=== PATIENT | female | born 1950 | race Hispanic/Latino ===

== ENCOUNTER → 2016-05-11 | Outpatient (CLI) | payer OTHER, MEDICAID | END | disposition home or self-care (01) | LOC: GMA 10:50 | PROVIDERS: ATTEND Nurse Practitioner Family | DX: R19.7 Diarrhea, unspecified (principal) ==

== ENCOUNTER 2016-08-17 15:57 | Emergency (ER) | payer OTHER, MEDICAID ==
[2016-08-17 16:12] VITALS: BP 193/78; TEMP 97.5; O2SAT 96
--- NOTE | 2016-08-17 16:40 | RAD ---
EXAM DESCRIPTION: Chest,2 Views CLINICAL HISTORY: Chest discomfort COMPARISON: August 03, 2015 FINDINGS: Cardiac silhouette shows cardiomegaly with mild vascular congestion. Calcific atherosclerosis noted of the aortic arch. Lung volumes are hyperinflated, compatible with changes of COPD. Hazy linear opacities in the left retrocardiac region and right lung base are likely linear atelectasis; however, early infiltrate cannot be entirely excluded although felt less likely. Blunting of the right costophrenic angle, compatible with small right-sided pleural effusion. No pneumothorax. Dextrocurvature of the thoracic spine. IMPRESSION: 1. Hazy linear opacities in the left retrocardiac region and right lung bases are likely linear atelectasis. Early infiltrate cannot be entirely excluded, although felt less likely. 2. Small right-sided pleural effusion. Electronically signed by: Jonathan Bryson MD 08/17/2016 4:39 PM CDT
[2016-08-17] MEDS ORDERED: MECLIZINE HCL 12.5 MG TAB PO ONE (17:46)
--- NOTE | 2016-08-17 17:48 | ED.PDOC ---
History of Present Illness - General Chief Complaint: Cardiovascular Problem Stated Complaint: chest pressure and dizziness Time Seen by Provider: 08/17/16 16:04 Source: patient Exam Limitations: no limitations - History of Present Illness Initial Comments: the patient is a 66-year-old female presenting to the emergency room secondary to several episodes of vertigo followed by dizziness over the last week. No syncope or near-syncope. No significant falls. Episodes do sound like true vertigo. No trauma. No recent ear infections. Episodes of vertigo last less than a minute. She does have some associated nausea and substernal chest discomfort with the vertigo. Timing/Duration: 1 week, intermittent Severity: moderate Improving Factors: rest Worsening Factors: movement Associated Symptoms: chest pain, malaise, nausea/vomiting Allergies/Adverse Reactions: Allergies Iodine Allergy (Verified 08/17/16 16:12) Metformin Allergy (Verified 08/17/16 16:12) Home Medications: Ambulatory Orders Acetaminophen [Tylenol] 325 mg PO Q4H PRN 12/10/15 Amiodarone HCl 200 mg PO DAILY 12/10/15 Calcium 1,200 mg PO BID 12/10/15 Diltiazem HCl 30 mg PO TID 12/10/15 Furosemide 40 mg PO BID 12/10/15 Gabapentin 300 mg PO BID 12/10/15 Insulin Glargine [Lantus Solostar] 14 unit SC DAILY 12/10/15 Insulin Lispro (Human) [Humalog Kwikpen] 2 unit SC .TIDAC 12/10/15 Magnesium [Magnesium] 400 mg PO BID 12/10/15 Metoprolol Tartrate 100 mg PO BID 12/10/15 Multiple Vitamin [Multivitamins] 1 cap PO DAILY 12/10/15 Pantoprazole Sodium 20 mg PO DAILY 12/10/15 Potassium Chloride [K-Tab] 40 meq PO BID 12/10/15 Tylenol With Codeine #3 1 ea PO Q4H PRN 12/10/15 Meclizine HCl 25 mg PO Q6H PRN #30 tab 08/17/16 Review of Systems - Review of Systems Constitutional: States: malaise EENTM: States: blurred vision Respiratory: States: no symptoms reported Cardiology: States: chest pain Gastrointestinal/Abdominal: States: nausea Genitourinary: States: no symptoms reported Musculoskeletal: States: no symptoms reported Skin: States: no symptoms reported Neurological: States: other - Dizziness Endocrine: States: no symptoms reported All other Systems: No Change from Baseline Past Medical History (General) - Patient Medical History Hx Seizures: Yes Hx Stroke: Yes Hx Dementia: No Hx Asthma: Yes Hx of COPD: Yes Hx Cardiac Disorders: Yes - A-fib Hx Congestive Heart Failure: No Hx Hypertension: Yes Hx Thyroid Disease: No Hx Diabetes: Yes Hx Gastroesophageal Reflux: Yes Hx Renal Disease: Yes Hx Cancer: No Hx of HIV: No Hx Hepatitis C: No Hx MRSA: No Surgical History: other - Vaccination History Hx Tetanus, Diphtheria Vaccination: No Hx Influenza Vaccination: No Hx Pneumococcal Vaccination: No - Social History Hx Tobacco Use: No Hx Chewing Tobacco Use: No Hx Alcohol Use: No Hx Substance Use: No Hx Substance Use Treatment: No Hx Depression: No Hx Physical Abuse: No Hx Emotional Abuse: No Hx Suspected Abuse: No - Activities of Daily Living Hospice Agency (if applicable):: None - Female History Patient is a Female of Child Bearing Age (10 -59 yrs old): No Patient : No Family Medical History - Family History Mother Family History: Unknown Living Status: Age at (years of age): 71 Hx Family Hypertension: Yes Hx Cardiac Disease: Yes Hx Family Diabetes: Yes Hx Family Cancer: Yes Physical Exam - Physical Exam General Appearance: Alert, Comfortable, No apparent distress Eye Exam: right other - extraocular movements are intact. No proptosis. No vertical skew deviation. No abnormal nystagmus. Head impulse test does lateralize to the left. Ears, Nose, Throat: hearing grossly normal, normal ENT inspection, normal pharynx Neck: non-tender, full range of motion, supple Respiratory: chest non-tender, lungs clear, normal breath sounds, no respiratory distress, no accessory muscle use Cardiovascular/Chest: normal peripheral pulses, regular rate, rhythm, no edema Peripheral Pulses: radial,right: 2+, radial,left: 2+, dorsalis pedis,right: 2+, dorsalis pedis,left: 2+ Gastrointestinal/Abdominal: non tender, soft - morbidly obese. Scars are present. 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 HINTS exam was positive, indicating this diagnosis over a stroke. The patient will be written for meclizine for as needed use. She needs to ambulate carefully. She needs to keep well hydrated. She needs to control her diabetes. She should follow up with her primary care doctor in 2 days. ER warnings were given. - Results/Orders Results/Orders: Laboratory Tests 08/17/16 08/17/16 08/17/16 16:20 16:20 16:20 WBC 10.1 RBC 4.93 Hgb 12.6 Hct 39.3 MCV 79.7 L MCH 25.6 L MCHC 32.2 L RDW 15.1 H Plt Count 290 MPV 8.4 Absolute Neuts (auto) 6.90 H Absolute Lymphs (auto) 2.20 Absolute Monos (auto) 0.70 Absolute Eos (auto) 0.20 Absolute Basos (auto) 0.10 Neutrophils % 68.8 Lymphocytes % 21.7 Monocytes % 6.6 Eosinophils % 1.7 Basophils % 1.2 PT 10.7 INR 0.950 PTT (SP) 26.1 D-Dimer, Quantitative < 230 Sodium 137 Potassium 4.4 Chloride 103 Carbon Dioxide 25 Anion Gap 13.4 BUN 23 H Creatinine 1.06 BUN/Creatinine Ratio 21.7 H Random Glucose 285 H Serum Osmolality 287.9 Calcium 9.1 Magnesium 1.8 Total Bilirubin 0.5 AST 18 ALT 23 Alkaline Phosphatase 127 H Creatine Kinase 28 CK-MB (CK-2) 0.8 CK-MB (CK-2) % Not Reportable Troponin I 0.02 B-Natriuretic Peptide 172.0 H Serum Total Protein 7.1 Albumin 3.7 Globulin 3.4 Albumin/Globulin Ratio 1.1 Urine Color Urine Appearance Urine pH Ur Specific [place] Urine Protein Urine Glucose (UA) Urine Ketones Urine Blood Urine Nitrite Urine Bilirubin Urine Urobilinogen Ur Leukocyte Esterase Urine RBC Urine WBC Ur Epithelial Cells Urine Bacteria 08/17/16 17:05 WBC RBC Hgb Hct MCV MCH MCHC RDW Plt Count MPV Absolute Neuts (auto) Absolute Lymphs (auto) Absolute Monos (auto) Absolute Eos (auto) Absolute Basos (auto) Neutrophils % Lymphocytes % Monocytes % Eosinophils % Basophils % PT INR PTT (SP) D-Dimer, Quantitative Sodium Potassium Chloride Carbon Dioxide Anion Gap BUN Creatinine BUN/Creatinine Ratio Random Glucose Serum Osmolality Calcium Magnesium Total Bilirubin AST ALT Alkaline Phosphatase Creatine Kinase CK-MB (CK-2) CK-MB (CK-2) % Troponin I B-Natriuretic Peptide Serum Total Protein Albumin Globulin Albumin/Globulin Ratio Urine Color Yellow Urine Appearance Clear Urine pH 5.0 Ur Specific [place] 1.010 Urine Protein Negative Urine Glucose (UA) Negative Urine Ketones Negative Urine Blood Negative Urine Nitrite Negative Urine Bilirubin Negative Urine Urobilinogen 0.2 Ur Leukocyte Esterase Negative Urine RBC 0 Urine WBC 0 Ur Epithelial Cells 0-1 Urine Bacteria Rare chest x-ray shows linear atelectasis and very small right pleural effusion. eKG shows sinus bradycardia which is not a new problem. No acute ST segment changes when compared to previous EKGs. Departure - Departure Clinical Impression: Vertigo ICD-10 Supporting Text: acute vestibular syndrome Disposition: Discharge to Home or Self Care Condition: Fair Departure Forms: ED Discharge - Pt. Copy, Patient Portal Self Enrollment Instructions: DI for Vertigo Diet: regular diet Activity: increase activity as tolerated Referrals: Wei Christian MD [Primary Care Provider] - 1-5 Days Prescriptions: Meclizine HCl 25 mg PO Q6H PRN #30 tab PRN Reason: Dizziness Home Medications: Ambulatory Orders Acetaminophen [Tylenol] 325 mg PO Q4H PRN 12/10/15 Amiodarone HCl 200 mg PO DAILY 12/10/15 Calcium 1,200 mg PO BID 12/10/15 Diltiazem HCl 30 mg PO TID 12/10/15 Furosemide 40 mg PO BID 12/10/15 Gabapentin 300 mg PO BID 12/10/15 Insulin Glargine [Lantus Solostar] 14 unit SC DAILY 12/10/15 Insulin Lispro (Human) [Humalog Kwikpen] 2 unit SC .TIDAC 12/10/15 Magnesium [Magnesium] 400 mg PO BID 12/10/15 Metoprolol Tartrate 100 mg PO BID 12/10/15 Multiple Vitamin [Multivitamins] 1 cap PO DAILY 12/10/15 Pantoprazole Sodium 20 mg PO DAILY 12/10/15 Potassium Chloride [K-Tab] 40 meq PO BID 12/10/15 Tylenol With Codeine #3 1 ea PO Q4H PRN 12/10/15 Meclizine HCl 25 mg PO Q6H PRN #30 tab 08/17/16 Additional Instructions: the patient is a 66-year-old female presenting with vertigo episodes that appear to be due to acute vestibular syndrome. HINTS exam was positive, indicating this diagnosis over a stroke. The patient will be written for meclizine for as needed use. She needs to ambulate carefully. She needs to keep well hydrated. She needs to control her diabetes. She should follow up with her primary care doctor in 2 days. ER warnings were given. The patient does additionally have some significant bradycardia. Consideration may be given to reducing her metoprolol doses.
== END 2016-08-17 18:19 | disposition home or self-care (01) ==
LOC: ER 15:57
DX: H81.90 Unspecified disorder of vestibular function, unspecified ear (principal); R07.9 Chest pain, unspecified; I48.91 Unspecified atrial fibrillation; I10 Essential (primary) hypertension; E11.9 Type 2 diabetes mellitus without complications; J44.9 Chronic obstructive pulmonary disease, unspecified; N28.9 Disorder of kidney and ureter, unspecified; Z79.4 Long term (current) use of insulin; Z79.899 Other long term (current) drug therapy; Z88.8 Allergy status to other drugs, medicaments and biological substances

== ENCOUNTER 2016-10-15 00:12 | Emergency (ER) | payer OTHER, MEDICAID ==
[2016-10-15] MEDS ORDERED: ASPIRIN (CHEWABLE) 81 MG TAB PO ONE (00:30)
--- NOTE | 2016-10-15 00:54 | RAD ---
PROCEDURE: XR CHEST 1 VIEW HISTORY: chest pain COMPARISON: 08/17/2016 TECHNIQUE: Single projection of the chest was done. FINDINGS: The lung de anda are well inflated . There are no discrete airspace infiltrates, pneumothoraces or pleural effusions. The pulmonary vascularity is normal. The cardiomediastinal silhouette is stable and suggestive of cardiomegaly. IMPRESSION: There is no acute pleural-parenchymal process seen in the imaged lung de anda. Stable cardiomegaly Electronically signed by: Reilly Hoffman MD 10/15/2016 12:52 AM CDT Workstation: [id number]
[2016-10-15 02:13] VITALS: O2SAT 96
--- NOTE | 2016-10-15 02:49 | ED.PDOC ---
History of Present Illness - General Chief Complaint: Cardiovascular Problem Stated Complaint: intermitten CP, left arm numbness Time Seen by Provider: 10/15/16 00:24 Source: patient Exam Limitations: no limitations - History of Present Illness Initial Comments: Patient presents with chest pain. It is mid-sternal, non-radiating, constant, cramping, no previous sx, no associated sx. It developed immediately after she was told that her daughter had just . Patient states that she thinks it is emotional and not cardiac. No other complaints. Timing/Duration: momentarily Severity: mild Improving Factors: nothing Worsening Factors: nothing Associated Symptoms: denies symptoms Allergies/Adverse Reactions: Allergies Iodine Allergy (Verified 10/15/16 01:01) Metformin Allergy (Verified 10/15/16 01:01) Home Medications: Ambulatory Orders Acetaminophen [Tylenol] 325 mg PO Q4H PRN 12/10/15 Amiodarone HCl 200 mg PO DAILY 12/10/15 Calcium 1,200 mg PO BID 12/10/15 Diltiazem HCl 30 mg PO TID 12/10/15 Furosemide 40 mg PO BID 12/10/15 Gabapentin 300 mg PO BID 12/10/15 Insulin Glargine [Lantus Solostar] 14 unit SC DAILY 12/10/15 Insulin Lispro (Human) [Humalog Kwikpen] 2 unit SC .TIDAC 12/10/15 Magnesium [Magnesium] 400 mg PO BID 12/10/15 Metoprolol Tartrate 100 mg PO BID 12/10/15 Multiple Vitamin [Multivitamins] 1 cap PO DAILY 12/10/15 Pantoprazole Sodium 20 mg PO DAILY 12/10/15 Potassium Chloride [K-Tab] 40 meq PO BID 12/10/15 Tylenol With Codeine #3 1 ea PO Q4H PRN 12/10/15 Meclizine HCl 25 mg PO Q6H PRN #30 tab 08/17/16 Review of Systems - Review of Systems Constitutional: States: no symptoms reported EENTM: States: no symptoms reported Respiratory: States: no symptoms reported Cardiology: States: see HPI Gastrointestinal/Abdominal: States: no symptoms reported Genitourinary: States: no symptoms reported Musculoskeletal: States: no symptoms reported Skin: States: no symptoms reported Neurological: States: no symptoms reported Endocrine: States: no symptoms reported Hematologic/Lymphatic: States: no symptoms reported Past Medical History (General) - Patient Medical History Hx Seizures: Yes Hx Stroke: Yes Hx Dementia: No Hx Asthma: Yes Hx of COPD: Yes Hx Cardiac Disorders: Yes - A-fib Hx Congestive Heart Failure: No Hx Hypertension: Yes Hx Thyroid Disease: No Hx Diabetes: Yes Hx Gastroesophageal Reflux: Yes Hx Renal Disease: Yes Hx Cancer: No Hx of HIV: No Hx Hepatitis C: No Hx MRSA: No Surgical History: other - Vaccination History Hx Tetanus, Diphtheria Vaccination: No Hx Influenza Vaccination: No Hx Pneumococcal Vaccination: No - Social History Hx Tobacco Use: No Hx Chewing Tobacco Use: No Hx Alcohol Use: No Hx Substance Use: No Hx Substance Use Treatment: No Hx Depression: No Hx Physical Abuse: No Hx Emotional Abuse: No Hx Suspected Abuse: No - Female History Patient : No Family Medical History - Family History Mother Family History: Unknown Living Status: Age at (years of age): 71 Hx Family Hypertension: Yes Hx Cardiac Disease: Yes Hx Family Diabetes: Yes Hx Family Cancer: Yes Physical Exam - Physical Exam General Appearance: Alert Respiratory: lungs clear Cardiovascular/Chest: normal peripheral pulses, regular rate, rhythm Gastrointestinal/Abdominal: normal bowel sounds, non tender, soft Extremity: no pedal edema Skin Exam: normal color Progress - Progress Progress: 10/15/16 02:50 Troponin negative. EKG showed NSR with no ST changes nor T wave inversions. No LBBB. Symptoms resolved shortly after onset. Patient stated that she thinks it was from being upset about her daughter's . Departure - Departure Clinical Impression: Chest pain Disposition: Discharge to Home or Self Care Condition: Good Departure Forms: ED Discharge - Pt. Copy, Patient Portal Self Enrollment Diet: low fat, low cholesterol, diabetic diet Activity: increase activity as tolerated Referrals: Wei Christian MD [Primary Care Provider] - 1-2 Weeks Home Medications: Ambulatory Orders Acetaminophen [Tylenol] 325 mg PO Q4H PRN 12/10/15 Amiodarone HCl 200 mg PO DAILY 12/10/15 Calcium 1,200 mg PO BID 12/10/15 Diltiazem HCl 30 mg PO TID 12/10/15 Furosemide 40 mg PO BID 12/10/15 Gabapentin 300 mg PO BID 12/10/15 Insulin Glargine [Lantus Solostar] 14 unit SC DAILY 12/10/15 Insulin Lispro (Human) [Humalog Kwikpen] 2 unit SC .TIDAC 12/10/15 Magnesium [Magnesium] 400 mg PO BID 12/10/15 Metoprolol Tartrate 100 mg PO BID 12/10/15 Multiple Vitamin [Multivitamins] 1 cap PO DAILY 12/10/15 Pantoprazole Sodium 20 mg PO DAILY 12/10/15 Potassium Chloride [K-Tab] 40 meq PO BID 12/10/15 Tylenol With Codeine #3 1 ea PO Q4H PRN 12/10/15 Meclizine HCl 25 mg PO Q6H PRN #30 tab 08/17/16 Additional Instructions: See your regular doctor to have your heart evaluated further.
[2016-10-15 03:07] VITALS: BP 117/65; TEMP 97.8
== END 2016-10-15 03:00 | disposition home or self-care (01) ==
LOC: ER 00:12
DX: R07.9 Chest pain, unspecified (principal); J44.9 Chronic obstructive pulmonary disease, unspecified; I48.91 Unspecified atrial fibrillation; I10 Essential (primary) hypertension; E11.9 Type 2 diabetes mellitus without complications; K21.9 Gastro-esophageal reflux disease without esophagitis; N28.9 Disorder of kidney and ureter, unspecified; Z86.73 Personal history of transient ischemic attack (TIA), and cerebral infarction without residual deficits; Z79.4 Long term (current) use of insulin; Z79.899 Other long term (current) drug therapy; Z88.8 Allergy status to other drugs, medicaments and biological substances

== ENCOUNTER → 2016-10-15 | Outpatient (CLI) | payer OTHER, MEDICAID ==
--- NOTE | 2016-10-16 06:59 | ED.PDOC ---
History of Present Illness - History of Present Illness Initial Comments: Laboratory Tests 10/15/16 15:01 Creatine Kinase 26 CK-MB (CK-2) 1.3 CK-MB (CK-2) % Not Reportable Troponin I 0.05 the patient was brought in for repeat laboratory work due to concern from the treating emergency physician from the night before. Lab work looks good. By secondhand information the patient is chest pain-free. She needs to keep follow -up with her primary care doctor. Allergies/Adverse Reactions: Allergies Iodine Allergy (Verified 10/15/16 01:01) Metformin Allergy (Verified 10/15/16 01:01) Home Medications: Ambulatory Orders Acetaminophen [Tylenol] 325 mg PO Q4H PRN 12/10/15 Amiodarone HCl 200 mg PO DAILY 12/10/15 Calcium 1,200 mg PO BID 12/10/15 Diltiazem HCl 30 mg PO TID 12/10/15 Furosemide 40 mg PO BID 12/10/15 Gabapentin 300 mg PO BID 12/10/15 Insulin Glargine [Lantus Solostar] 14 unit SC DAILY 12/10/15 Insulin Lispro (Human) [Humalog Kwikpen] 2 unit SC .TIDAC 12/10/15 Magnesium [Magnesium] 400 mg PO BID 12/10/15 Metoprolol Tartrate 100 mg PO BID 12/10/15 Multiple Vitamin [Multivitamins] 1 cap PO DAILY 12/10/15 Pantoprazole Sodium 20 mg PO DAILY 12/10/15 Potassium Chloride [K-Tab] 40 meq PO BID 12/10/15 Tylenol With Codeine #3 1 ea PO Q4H PRN 12/10/15 Meclizine HCl 25 mg PO Q6H PRN #30 tab 08/17/16 Past Medical History (General) - Patient Medical History Hx Seizures: Yes Hx Stroke: Yes Hx Dementia: No Hx Asthma: Yes Hx of COPD: Yes Hx Cardiac Disorders: Yes - A-fib Hx Congestive Heart Failure: No Hx Hypertension: Yes Hx Thyroid Disease: No Hx Diabetes: Yes Hx Gastroesophageal Reflux: Yes Hx Renal Disease: Yes Hx Cancer: No Hx of HIV: No Hx Hepatitis C: No Hx MRSA: No - Vaccination History Hx Tetanus, Diphtheria Vaccination: No Hx Influenza Vaccination: No Hx Pneumococcal Vaccination: No - Social History Hx Tobacco Use: No Hx Chewing Tobacco Use: No Hx Alcohol Use: No Hx Substance Use: No Hx Substance Use Treatment: No Hx Depression: No Hx Physical Abuse: No Hx Emotional Abuse: No Hx Suspected Abuse: No - Female History Patient : No Family Medical History - Family History Mother Family History: Unknown Living Status: Age at (years of age): 70 Hx Family Hypertension: Yes Hx Cardiac Disease: Yes Hx Family Diabetes: Yes Hx Family Cancer: Yes Departure - Departure Disposition: Discharge to Home or Self Skilled Nursing Medications: Ambulatory Orders Acetaminophen [Tylenol] 325 mg PO Q4H PRN 12/10/15 Amiodarone HCl 200 mg PO DAILY 12/10/15 Calcium 1,200 mg PO BID 12/10/15 Diltiazem HCl 30 mg PO TID 12/10/15 Furosemide 40 mg PO BID 12/10/15 Gabapentin 300 mg PO BID 12/10/15 Insulin Glargine [Lantus Solostar] 14 unit SC DAILY 12/10/15 Insulin Lispro (Human) [Humalog Kwikpen] 2 unit SC .TIDAC 12/10/15 Magnesium [Magnesium] 400 mg PO BID 12/10/15 Metoprolol Tartrate 100 mg PO BID 12/10/15 Multiple Vitamin [Multivitamins] 1 cap PO DAILY 12/10/15 Pantoprazole Sodium 20 mg PO DAILY 12/10/15 Potassium Chloride [K-Tab] 40 meq PO BID 12/10/15 Tylenol With Codeine #3 1 ea PO Q4H PRN 12/10/15 Meclizine HCl 25 mg PO Q6H PRN #30 tab 08/17/16
== END | disposition home or self-care (01) ==
LOC: LAB.O 14:52
PROVIDERS: ATTEND Family Medicine
DX: R07.9 Chest pain, unspecified (principal)

== ENCOUNTER 2017-04-12 18:19 | Emergency (ER) | payer OTHER, MEDICAID ==
[2017-04-12 18:54] VITALS: TEMP 98.9; O2SAT 93
--- NOTE | 2017-04-12 19:03 | ED.PDOC ---
History of Present Illness - General Chief Complaint: Back Pain or Injury Stated Complaint: Left lower back discomfort Time Seen by Provider: 04/12/17 19:02 Source: patient Exam Limitations: no limitations - History of Present Illness Initial Comments: Roberta Salvador 66 y/o female stated that she had left sided posterior thoracic cage intermittent stabbing pain for the last 3 days not getting better.Had this pain in the past but got better after a day.No diaphoresis,no SOB,no cough,no nausea or vomiting.Denies history of cardiac problem.No history of fall/injury to rib cage but had same pain last month. Timing/Duration: intermittent, other - see hpi Severity: moderate Improving Factors: nothing Worsening Factors: nothing Associated Symptoms: other - see hpi Allergies/Adverse Reactions: Allergies Iodine Allergy (Verified 04/12/17 18:35) Metformin Allergy (Verified 04/12/17 18:35) Home Medications: Ambulatory Orders Acetaminophen [Tylenol] 325 mg PO Q4H PRN 12/10/15 Amiodarone HCl 200 mg PO DAILY 12/10/15 Calcium 1,200 mg PO BID 12/10/15 Diltiazem HCl 30 mg PO TID 12/10/15 Furosemide 40 mg PO BID 12/10/15 Gabapentin 300 mg PO BID 12/10/15 Insulin Glargine [Lantus Solostar] 14 unit SC DAILY 12/10/15 Insulin Lispro [Humalog Kwikpen] 2 unit SC .TIDAC 12/10/15 Magnesium [Magnesium] 400 mg PO BID 12/10/15 Metoprolol Tartrate 100 mg PO BID 12/10/15 Multiple Vitamin [Multivitamins] 1 cap PO DAILY 12/10/15 Pantoprazole Sodium 20 mg PO DAILY 12/10/15 Potassium Chloride [K-Tab] 40 meq PO BID 12/10/15 Tylenol With Codeine #3 1 ea PO Q4H PRN 12/10/15 Meclizine HCl 25 mg PO Q6H PRN #30 tab 08/17/16 Acetamin W/Cod #3 Tab [Tylenol w/CODEINE #3] 1 ea PO TID PRN #20 tab 04/12/17 Review of Systems - Review of Systems Constitutional: States: no symptoms reported EENTM: States: no symptoms reported Respiratory: States: see HPI, other - rib cage pain Cardiology: States: no symptoms reported Gastrointestinal/Abdominal: States: no symptoms reported Genitourinary: States: no symptoms reported Musculoskeletal: States: see HPI Skin: States: no symptoms reported Neurological: States: no symptoms reported Endocrine: States: no symptoms reported All other Systems: Reviewed and Negative, No Change from Baseline Past Medical History (General) - Patient Medical History Hx Seizures: Yes Hx Stroke: Yes Hx Dementia: No Hx Asthma: Yes Hx of COPD: Yes Hx Cardiac Disorders: Yes - A-fib Hx Congestive Heart Failure: No Hx Hypertension: Yes Hx Thyroid Disease: No Hx Diabetes: Yes Hx Gastroesophageal Reflux: Yes Hx Renal Disease: Yes Hx Cancer: No Hx of HIV: No Hx Hepatitis C: No Hx MRSA: No Surgical History: other - ventral hernia repair - Vaccination History Hx Tetanus, Diphtheria Vaccination: No Hx Influenza Vaccination: No Hx Pneumococcal Vaccination: No - Social History Hx Tobacco Use: No Hx Chewing Tobacco Use: No Hx Alcohol Use: No Hx Substance Use: No Hx Substance Use Treatment: No Hx Depression: No Hx Physical Abuse: No Hx Emotional Abuse: No Hx Suspected Abuse: No - Female History Patient : No Family Medical History - Family History Mother Family History: Unknown Living Status: Age at (years of age): 70 Hx Family Hypertension: Yes Hx Cardiac Disease: Yes Hx Family Diabetes: Yes Hx Family Cancer: Yes Physical Exam - Physical Exam General Appearance: Alert, Comfortable, No apparent distress Eye Exam: bilateral normal Ears, Nose, Throat: hearing grossly normal, normal ENT inspection Neck: non-tender, full range of motion, supple Respiratory: lungs clear, normal breath sounds, other - tenderness left mid / lower rib cage left to palpation Cardiovascular/Chest: normal peripheral pulses, regular rate, rhythm, no murmur Peripheral Pulses: radial,right: 2+, radial,left: 2+ Gastrointestinal/Abdominal: normal bowel sounds, non tender, soft, no organomegaly Back Exam: no CVA tenderness, no vertebral tenderness Extremity: no pedal edema, no calf tenderness Neurologic: alert, oriented x 3 Skin Exam: normal color, warm/dry, other - no rashes noted Progress - Progress Progress: 04/12/17 20:12 Last Vital Signs Temp 98.9 F 04/12/17 18:28 Pulse 92 H 04/12/17 18:28 Resp 22 04/12/17 18:28 BP 202/99 04/12/17 18:28 Pulse Ox 93 L 04/12/17 18:28 04/12/17 21:50 Vital Signs - 8 hr 04/12/17 04/12/17 18:28 21:37 Temperature 98.9 F Pulse Rate [ 92 H 56 L Left Radial] Respiratory 22 Rate Blood Pressure 202/99 169/73 [Left Arm] O2 Sat by Pulse 93 L Oximetry - Results/Orders Results/Orders: Laboratory Tests 04/12/17 04/12/17 04/12/17 19:22 19:22 20:33 WBC 9.9 RBC 5.29 Hgb 13.8 Hct 42.7 MCV 80.8 L MCH 26.2 L MCHC 32.4 L RDW 15.4 H Plt Count 303 MPV 8.5 Absolute Neuts (auto) 6.60 Absolute Lymphs (auto) 2.50 Absolute Monos (auto) 0.60 Absolute Eos (auto) 0.20 Absolute Basos (auto) 0.10 Neutrophils % 66.0 Lymphocytes % 25.0 Monocytes % 6.3 Eosinophils % 1.8 Basophils % 0.9 PT 10.5 INR 0.930 PTT (SP) 27.1 D-Dimer, Quantitative 241 H* Sodium 135 Potassium 4.4 Chloride 99 L Carbon Dioxide 24 Anion Gap 16.4 BUN 20 H Creatinine 0.97 BUN/Creatinine Ratio 20.6 H Random Glucose 217 H Serum Osmolality 279.3 Calcium 9.4 Magnesium 1.7 L Total Bilirubin 0.6 Direct Bilirubin 0.1 Indirect Bilirubin 0.5 AST 38 ALT 32 Alkaline Phosphatase 130 H Creatine Kinase 30 CK-MB (CK-2) 0.8 CK-MB (CK-2) % Not Reportable Troponin I < 0.02 Serum Total Protein 7.7 Albumin 3.9 Urine Color Yellow Urine Appearance Clear Urine pH 5.5 Ur Specific [place] 1.020 Urine Protein Negative Urine Glucose (UA) 100 H Urine Ketones Trace Urine Blood Negative Urine Nitrite Negative Urine Bilirubin Negative Urine Urobilinogen 0.2 Ur Leukocyte Esterase Negative Urine RBC 0 Urine WBC 0-1 Ur Epithelial Cells 3-5 Urine Bacteria Rare Urine Mucus Trace - EKG/XRAY/CT EKG: Bulmaro, Sinus, nonspecific ST T wave Chg - ant.leads Comments: Heart rate-51;LAD XRAY: chest - no acute abnormalities Departure - Departure Clinical Impression: Rib pain on left side Time of Disposition: 21:52 Disposition: Discharge to Home or Self Care Departure Forms: ED Discharge - Pt. Copy, Patient Portal Self Enrollment Instructions: DI for Back Spasm Referrals: Wei Christian MD [Primary Care Provider] - 1-2 Weeks Prescriptions: Acetamin W/Cod #3 Tab [Tylenol w/CODEINE #3] 1 ea PO TID PRN #20 tab PRN Reason: Pain Home Medications: Ambulatory Orders Acetaminophen [Tylenol] 325 mg PO Q4H PRN 12/10/15 Amiodarone HCl 200 mg PO DAILY 12/10/15 Calcium 1,200 mg PO BID 12/10/15 Diltiazem HCl 30 mg PO TID 12/10/15 Furosemide 40 mg PO BID 12/10/15 Gabapentin 300 mg PO BID 12/10/15 Insulin Glargine [Lantus Solostar] 14 unit SC DAILY 12/10/15 Insulin Lispro [Humalog Kwikpen] 2 unit SC .TIDAC 12/10/15 Magnesium [Magnesium] 400 mg PO BID 12/10/15 Metoprolol Tartrate 100 mg PO BID 12/10/15 Multiple Vitamin [Multivitamins] 1 cap PO DAILY 12/10/15 Pantoprazole Sodium 20 mg PO DAILY 12/10/15 Potassium Chloride [K-Tab] 40 meq PO BID 12/10/15 Tylenol With Codeine #3 1 ea PO Q4H PRN 12/10/15 Meclizine HCl 25 mg PO Q6H PRN #30 tab 08/17/16 Acetamin W/Cod #3 Tab [Tylenol w/CODEINE #3] 1 ea PO TID PRN #20 tab 04/12/17 Additional Instructions: follow up with primary Md 04/14/2017;Return to emergency room as needed.
--- NOTE | 2017-04-12 19:58 | RAD ---
EXAM DESCRIPTION: Chest,2 Views CLINICAL HISTORY: thoracic pain COMPARISON: None FINDINGS: Cardiac silhouette is within normal limits. Patient is rotated. There is atherosclerosis. There is no focal parenchymal or pleural disease. There is no acute osseous process visualized. IMPRESSION: No evidence of acute cardiopulmonary disease. Electronically signed by: Juan F Hernandez MD 04/12/2017 7:57 PM [employer]
[2017-04-12] MEDS: ORPHENADRINE CITRATE 30 MG/ML AMP IV ONE (20:26)
[2017-04-12] MEDS: KETOROLAC TROMETHAMINE INJ 30 MG/ML VIAL IV ONE (20:27)
[2017-04-12] MEDS: ORPHENADRINE CITRATE 30 MG/ML AMP IM ONE (21:14)
[2017-04-12] MEDS: HYDROcodone 7.5MG/APAP 325MG 1 EA TAB PO ONE (21:14)
[2017-04-12] MEDS: KETOROLAC TROMETHAMINE INJ 30 MG/ML VIAL IM ONE (21:14)
[2017-04-12 21:38] VITALS: BP 169/73
== END 2017-04-12 22:07 | disposition home or self-care (01) ==
LOC: ER 18:19
DX: R07.81 Pleurodynia (principal); J44.9 Chronic obstructive pulmonary disease, unspecified; I48.91 Unspecified atrial fibrillation; I10 Essential (primary) hypertension; E11.9 Type 2 diabetes mellitus without complications; Z79.4 Long term (current) use of insulin
CPT/HCPCS: 36415; 71046; 80048; 80076; 81001; 82550; 82553; 84484; 85025; 85379; 85610; 85730; 93005; J1885; J2360

== ENCOUNTER 2017-11-30 23:49 | Emergency (ER) | payer OTHER, MEDICAID ==
--- NOTE | 2017-12-01 00:22 | ED.PDOC ---
History of Present Illness - General Chief Complaint: Neck Injury/Pain Stated Complaint: neck and shoulder pain Time Seen by Provider: 12/01/17 00:18 Source: patient Exam Limitations: no limitations - History of Present Illness Initial Comments: C/O PAIN PRIMARILY IN L POST THORAX WITH SOME RADIATION TO THE L CHEST. ONSET 6 HOURS AGO, CONSTANT NON RADIATING. Severity: moderate Improving Factors: nothing Worsening Factors: movement Associated Symptoms: denies symptoms Allergies/Adverse Reactions: Allergies Iodine Allergy (Verified 12/01/17 00:06) Metformin Allergy (Verified 12/01/17 00:06) Home Medications: Ambulatory Orders Acetaminophen [Tylenol] 325 mg PO Q4H PRN 12/10/15 Amiodarone HCl 200 mg PO DAILY 12/10/15 Calcium 1,200 mg PO BID 12/10/15 Diltiazem HCl 30 mg PO TID 12/10/15 Furosemide 40 mg PO BID 12/10/15 Gabapentin 300 mg PO BID 12/10/15 Insulin Glargine [Lantus Solostar] 14 unit SC DAILY 12/10/15 Insulin Lispro [Humalog Kwikpen] 2 unit SC .TIDAC 12/10/15 Magnesium [Magnesium] 400 mg PO BID 12/10/15 Metoprolol Tartrate 100 mg PO BID 12/10/15 Multiple Vitamin [Multivitamins] 1 cap PO DAILY 12/10/15 Pantoprazole Sodium 20 mg PO DAILY 12/10/15 Potassium Chloride [K-Tab] 40 meq PO BID 12/10/15 Tylenol With Codeine #3 1 ea PO Q4H PRN 12/10/15 Meclizine HCl 25 mg PO Q6H PRN #30 tab 08/17/16 Acetamin W/Cod #3 Tab [Tylenol w/CODEINE #3] 1 ea PO TID PRN #20 tab 04/12/17 Cyclobenzaprine HCl [Flexeril] 10 mg PO TID PRN #15 tab 12/01/17 Indomethacin 50 mg PO TID PRN #14 cap 12/01/17 Review of Systems - Review of Systems Constitutional: Denies: chills, fever EENTM: States: no symptoms reported Respiratory: Denies: cough, short of breath, wheezing Cardiology: States: chest pain. Denies: palpitations, syncope Gastrointestinal/Abdominal: Denies: abdominal pain, nausea, vomiting Genitourinary: States: no symptoms reported Musculoskeletal: States: back pain. Denies: neck pain Skin: States: no symptoms reported Neurological: States: no symptoms reported Endocrine: States: no symptoms reported Hematologic/Lymphatic: States: no symptoms reported Past Medical History (General) - Patient Medical History Hx Seizures: Yes Hx Stroke: Yes Hx Dementia: No Hx Asthma: Yes Hx of COPD: Yes Hx Cardiac Disorders: Yes - A-fib Hx Congestive Heart Failure: No Hx Hypertension: Yes Hx Thyroid Disease: No Hx Diabetes: Yes Hx Gastroesophageal Reflux: Yes Hx Renal Disease: Yes Hx Cancer: No Hx of HIV: No Hx Hepatitis C: No Hx MRSA: No - Vaccination History Hx Tetanus, Diphtheria Vaccination: No Hx Influenza Vaccination: No Hx Pneumococcal Vaccination: No - Social History Hx Tobacco Use: No Hx Chewing Tobacco Use: No Hx Alcohol Use: No Hx Substance Use: No Hx Substance Use Treatment: No Hx Depression: No Hx Physical Abuse: No Hx Emotional Abuse: No Hx Suspected Abuse: No - Female History Patient : No Family Medical History - Family History Mother Family History: Unknown Living Status: Age at (years of age): 71 Hx Family Hypertension: Yes Hx Cardiac Disease: Yes Hx Family Diabetes: Yes Hx Family Cancer: Yes Physical Exam - Physical Exam General Appearance: Obvious distress - DTP, Obese - MORBID Eye Exam: bilateral normal Ears, Nose, Throat: hearing grossly normal, normal ENT inspection Neck: non-tender, full range of motion, supple Respiratory: lungs clear, normal breath sounds, no respiratory distress Cardiovascular/Chest: regular rate, rhythm, no murmur Gastrointestinal/Abdominal: normal bowel sounds, non tender, soft, no organomegaly Back Exam: normal inspection, no CVA tenderness, other - TTP L POST THORAX, PALPATION REPRODUCES PAIN. Extremity: normal range of motion, non-tender Neurologic: alert, normal mood/affect Skin Exam: normal color, warm/dry Lymphatic: no adenopathy Progress - Progress Progress: 12/01/17 02:03 FEELS BETTER AFTER TORADOL. - EKG/XRAY/CT EKG: Bulmaro - RATE 57, LAD, 1ST DEGREE AV BLOCK, , Sinus, nonspecific ST T wave Chg - NAIP, , Unchanged from - 04/12/2017 XRAY: chest - CARDIOMEGALY, NO ACUTE INFILTRATE Departure - Departure Clinical Impression: Diabetes 1.5, managed as type 2 Back pain, thoracic Qualifiers: Chronicity: acute Back pain laterality: left Qualified Code(s): M54.6 - Pain in thoracic spine Hypertension Qualifiers: Hypertension type: essential hypertension Qualified Code(s): I10 - Essential ( primary) hypertension Time of Disposition: 02:05 Disposition: Discharge to Home or Self Care Condition: Good Departure Forms: ED Discharge - Pt. Copy, Patient Portal Self Enrollment Instructions: Upper Back Pain Referrals: Wei Christian MD [Primary Care Provider] - 1-2 Weeks Prescriptions: Cyclobenzaprine HCl [Flexeril] 10 mg PO TID PRN #15 tab PRN Reason: Pain Indomethacin 50 mg PO TID PRN #14 cap PRN Reason: Pain Home Medications: Ambulatory Orders Acetaminophen [Tylenol] 325 mg PO Q4H PRN 12/10/15 Amiodarone HCl 200 mg PO DAILY 12/10/15 Calcium 1,200 mg PO BID 12/10/15 Diltiazem HCl 30 mg PO TID 12/10/15 Furosemide 40 mg PO BID 12/10/15 Gabapentin 300 mg PO BID 12/10/15 Insulin Glargine [Lantus Solostar] 14 unit SC DAILY 12/10/15 Insulin Lispro [Humalog Kwikpen] 2 unit SC .TIDAC 12/10/15 Magnesium [Magnesium] 400 mg PO BID 12/10/15 Metoprolol Tartrate 100 mg PO BID 12/10/15 Multiple Vitamin [Multivitamins] 1 cap PO DAILY 12/10/15 Pantoprazole Sodium 20 mg PO DAILY 12/10/15 Potassium Chloride [K-Tab] 40 meq PO BID 12/10/15 Tylenol With Codeine #3 1 ea PO Q4H PRN 12/10/15 Meclizine HCl 25 mg PO Q6H PRN #30 tab 08/17/16 Acetamin W/Cod #3 Tab [Tylenol w/CODEINE #3] 1 ea PO TID PRN #20 tab 04/12/17 Cyclobenzaprine HCl [Flexeril] 10 mg PO TID PRN #15 tab 12/01/17 Indomethacin 50 mg PO TID PRN #14 cap 12/01/17
[2017-12-01 00:23] VITALS: TEMP 98.8
[2017-12-01] MEDS ORDERED: KETOROLAC TROMETHAMINE INJ 30 MG/ML VIAL IV ONE (00:27)
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
[2017-12-01 02:20] VITALS: BP 169/77; O2SAT 98
== END 2017-12-01 02:20 | disposition home or self-care (01) ==
LOC: ER 23:49
DX: M54.6 Pain in thoracic spine (principal); E11.9 Type 2 diabetes mellitus without complications; I10 Essential (primary) hypertension; R07.9 Chest pain, unspecified; I44.0 Atrioventricular block, first degree; I51.7 Cardiomegaly; I48.91 Unspecified atrial fibrillation; J44.9 Chronic obstructive pulmonary disease, unspecified; K21.9 Gastro-esophageal reflux disease without esophagitis; Z86.73 Personal history of transient ischemic attack (TIA), and cerebral infarction without residual deficits; Z79.899 Other long term (current) drug therapy; Z79.4 Long term (current) use of insulin; Z88.8 Allergy status to other drugs, medicaments and biological substances; Z91.041 Radiographic dye allergy status
CPT/HCPCS: 71045; 80053; 84484; 85025; 93005; J1885

== ENCOUNTER → 2017-12-14 | Outpatient (CLI) | payer OTHER, MEDICAID | LOC: LAB.O 11:22 | PROVIDERS: ATTEND Internal Medicine Interventional Cardiology | DX: I10 Essential (primary) hypertension (principal) ==

== ENCOUNTER 2018-07-03 06:22 | Emergency (ER) | payer MEDICAID, OTHER ==
[2018-07-03] MEDS ORDERED: amLODIPine BESYLATE 5 MG TAB PO ONE (07:02)
[2018-07-03] MEDS ORDERED: CYCLOBENZAPRINE HCL 10 MG TAB PO ONE (07:02)
[2018-07-03] MEDS ORDERED: KETOROLAC TROMETHAMINE INJ 30 MG/ML VIAL IM ONE (07:02)
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
[2018-07-03 08:02] VITALS: BP 176/94; TEMP 96.7; O2SAT 98
== END 2018-07-03 08:03 | disposition home or self-care (01) ==
LOC: ER 06:22
DX: M62.838 Other muscle spasm (principal); I12.9 Hypertensive chronic kidney disease with stage 1 through stage 4 chronic kidney disease, or unspecified chronic kidney disease; E11.22 Type 2 diabetes mellitus with diabetic chronic kidney disease; N18.9 Chronic kidney disease, unspecified; K21.9 Gastro-esophageal reflux disease without esophagitis; R56.9 Unspecified convulsions; J44.9 Chronic obstructive pulmonary disease, unspecified; I48.91 Unspecified atrial fibrillation; Z86.73 Personal history of transient ischemic attack (TIA), and cerebral infarction without residual deficits; Z79.899 Other long term (current) drug therapy; Z79.4 Long term (current) use of insulin; Z88.8 Allergy status to other drugs, medicaments and biological substances; Z91.041 Radiographic dye allergy status
CPT/HCPCS: 72040; J1885

== ENCOUNTER → 2018-10-07 | Outpatient (CLI) | payer MEDICARE, OTHER ==
--- NOTE | 2018-10-07 09:48 | RAD ---
PROVIDED CLINICAL HISTORY/REASON FOR EXAM: M25.511,M25.512 Findings: Number of images: 4 Location: Left shoulder No acute fracture or dislocation. Minimal acromioclavicular osteoarthritis. Soft tissues are unremarkable. Subacromial space is maintained. Visualized chest is clear. Atherosclerotic plaque in the thoracic aorta. Mild glenohumeral osteoarthritis. IMPRESSION: No evidence of acute process in the left shoulder. Electronically signed by: Mumtaz Ward MD 10/07/2018 9:47 AM CDT
--- NOTE | 2018-10-07 09:49 | RAD ---
PROVIDED CLINICAL HISTORY/REASON FOR EXAM: M25.511,M25.512 Findings: Number of images: 4 Location: Right shoulder No acute fracture or dislocation. Mild acromioclavicular osteoarthritis. Soft tissues are unremarkable. Subacromial space is maintained. Visualized chest is clear. Marked glenohumeral osteoarthritis. 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 Electronically signed by: Mumtaz Ward MD 10/07/2018 9:48 AM CDT
== END ==
LOC: RAD 08:19
PROVIDERS: ATTEND Orthopaedic Surgery
DX: M19.011 Primary osteoarthritis, right shoulder (principal); M25.512 Pain in left shoulder

== ENCOUNTER 2019-09-01 08:18 | Emergency (ER) | payer MEDICARE, MEDICAID ==
[2019-09-01] MEDS ORDERED: SILVER SULFADIAZINE 1 % 25 GM TUBE TOP ONE (08:46)
--- NOTE | 2019-09-01 08:48 | ED.PDOC ---
History of Present Illness - General Chief Complaint: General Stated Complaint: Foreign body in left ear Time Seen by Provider: 09/01/19 08:26 Additional Information: Patient is a 69-year-old female who presents to the ED with chief complaint of foreign body in her left ear. Patient indicates she had some itching in her ear and took a Q-tip and cleaned her ear and noted that the cotton tip on the end of the Q-tip remained lodged in her ear. Patient denies discharge from the ear or ear pain. Patient is otherwise asymptomatic except for a grease burn to her right wrist which she sustained 1 week ago that she would like a topical ointme nt for. She indicates it is not getting any worse it is just persistent. - History of Present Illness Allergies/Adverse Reactions: Allergies Iodine Allergy (Verified 07/03/18 06:52) Metformin Allergy (Verified 07/03/18 06:52) Home Medications: Ambulatory Orders Amiodarone HCl 200 mg PO DAILY 12/10/15 Calcium 1,200 mg PO BID 12/10/15 Diltiazem HCl 30 mg PO TID 12/10/15 Furosemide 40 mg PO BID 12/10/15 Gabapentin 300 mg PO BID 12/10/15 Insulin Glargine [Lantus Solostar] 14 unit SC DAILY 12/10/15 Magnesium 400 mg PO BID 12/10/15 Metoprolol Tartrate 100 mg PO BID 12/10/15 Multiple Vitamin [Multivitamins] 1 cap PO DAILY 12/10/15 Pantoprazole Sodium 20 mg PO DAILY 12/10/15 Potassium Chloride [K-Tab] 40 meq PO BID 12/10/15 Tylenol With Codeine #3 1 ea PO Q4H PRN 12/10/15 Meclizine HCl 25 mg PO Q6H PRN #30 tab 08/17/16 Cyclobenzaprine HCl [Flexeril] 10 mg PO TID PRN #15 tab 12/01/17 Indomethacin 50 mg PO TID PRN #14 cap 12/01/17 Mbzxbkcg-Zckevxhau-Ci (Otic) [Cortisporin Otic Soln] 0 ml LEFT_EAR TID #1 bttl 09/01/19 SILVER SULFADIAZINE 1 % 25gm [Silvadene Cream 25gm] 1 applic TOP BID #1 tube 09/01/19 Review of Systems - Review of Systems Constitutional: States: no symptoms reported. Denies: chills, fever EENTM: States: see HPI Respiratory: States: no symptoms reported. Denies: cough, short of breath Cardiology: States: no symptoms reported. Denies: chest pain, palpitations Gastrointestinal/Abdominal: States: no symptoms reported Genitourinary: States: no symptoms reported Musculoskeletal: States: no symptoms reported Skin: States: no symptoms reported All other Systems: Reviewed and Negative Past Medical History (General) - Patient Medical History Hx Seizures: No Hx Stroke: Yes Hx Dementia: No Hx Asthma: Yes Hx of COPD: No Hx Cardiac Disorders: Yes - A-fib Hx Congestive Heart Failure: No Hx Hypertension: Yes Hx Thyroid Disease: No Hx Diabetes: Yes Hx Gastroesophageal Reflux: Yes Hx Renal Disease: Yes Hx Cancer: No Hx of HIV: No Hx Hepatitis C: No Hx MRSA: No Surgical History: cholecystectomy, other - Vaccination History Hx Tetanus, Diphtheria Vaccination: No Hx Influenza Vaccination: Yes Hx Pneumococcal Vaccination: Yes - Social History Hx Tobacco Use: No Hx Chewing Tobacco Use: No Hx Alcohol Use: No Hx Substance Use: No Hx Substance Use Treatment: No Hx Depression: No Hx Physical Abuse: No Hx Emotional Abuse: No Hx Suspected Abuse: No - Female History Patient is a Female of Child Bearing Age (10 -59 yrs old): No Patient : No Family Medical History - Family History Mother Family History: Unknown Living Status: Age at (years of age): 70 Hx Family Hypertension: Yes Hx Cardiac Disease: Yes Hx Family Diabetes: Yes Hx Family Cancer: Yes Physical Exam - Physical Exam General Appearance: Alert, Comfortable, No apparent distress, Obese Ear Exam: right ear: auricle normal, canal normal, TM normal, left ear: foreign body - Wad of cotton lodged in the posterior canal adjacent to the TM Nasal Exam: normal inspection Throat Exam: normal mouth inspection Neck: normal inspection Neurologic: alert, normal mood/affect Skin Exam: normal color, warm/dry, other - 5 x 3 cm area of desquamation with exposed dermis to the vulvar right wrist. Negative peripheral erythema. Nontender. No discharge. Progress - Progress Progress: 09/01/19 0853: Cotton easily removed from ER and will discharge with Cortisporin otic solution for mild otitis externa. Will discharge with Silvadene cream for patient's healing burn. Patient has known hypertension and has not taken her blood pressure medicine today patient's blood pressure is elevated in the ED, will give p.o. clonidine and she will continue with her home medications. Patient is asymptomatic and does not require hypertensive work-up today. Vital signs stable, patient is NAD and looks clinically well and I believe is safe for discharge with outpatient follow-up. Follow-up instructions, discharge instructions and return to ED precautions discussed with patient. Patient voices understanding and willingness to comply with instructions. All laboratory and radiographic results have been discussed with the patient, and all questions answered. Patient is happy with plan. 09/01/19 08:54 Procedures - Foreign Body Removal Foreign Body Removal: other - Cotton Foreign Body Physician Comment:: Cotton easily removed from ear canal using alligator forceps. No complicat Departure - Departure Clinical Impression: Partial thickness burn, Essential hypertension Otitis externa Qualifiers: Otitis externa type: noninfectious Noninfectious otitis externa type: unspecified noninfectious type Chronicity: acute Laterality: left Qualified Code(s): H60.502 - Unspecified acute noninfective otitis externa, left ear Disposition: Discharge to Home or Self Care Condition: Good Departure Forms: ED Discharge - Pt. Copy, Patient Portal Self Enrollment Instructions: Outer Ear Infection (DC), Skin Ramirez, High Blood Pressure in Adults Referrals: Wei Christian MD [Primary Care Provider] - 1-2 Weeks Prescriptions: [id number]-[id number]-Ki (Otic) [Cortisporin Otic Soln] 0 ml LEFT_EAR TID #1 bttl SILVER SULFADIAZINE 1 % 25gm [Silvadene Cream 25gm] 1 applic TOP BID #1 tube Home Medications: Ambulatory Orders Amiodarone HCl 200 mg PO DAILY 12/10/15 Calcium 1,200 mg PO BID 12/10/15 Diltiazem HCl 30 mg PO TID 12/10/15 Furosemide 40 mg PO BID 12/10/15 Gabapentin 300 mg PO BID 12/10/15 Insulin Glargine [Lantus Solostar] 14 unit SC DAILY 12/10/15 Magnesium 400 mg PO BID 12/10/15 Metoprolol Tartrate 100 mg PO BID 12/10/15 Multiple Vitamin [Multivitamins] 1 cap PO DAILY 12/10/15 Pantoprazole Sodium 20 mg PO DAILY 12/10/15 Potassium Chloride [K-Tab] 40 meq PO BID 12/10/15 Tylenol With Codeine #3 1 ea PO Q4H PRN 12/10/15 Meclizine HCl 25 mg PO Q6H PRN #30 tab 08/17/16 Cyclobenzaprine HCl [Flexeril] 10 mg PO TID PRN #15 tab 12/01/17 Indomethacin 50 mg PO TID PRN #14 cap 12/01/17 Gfdazyev-Ueqkkbwzj-Ga (Otic) [Cortisporin Otic Soln] 0 ml LEFT_EAR TID #1 bttl 09/01/19 SILVER SULFADIAZINE 1 % 25gm [Silvadene Cream 25gm] 1 applic TOP BID #1 tube 09/01/19
[2019-09-01] MEDS: SILVER SULFADIAZINE 1 % 25 GM TUBE TOP ONE ×2 (08:57→09:01)
[2019-09-01] MEDS: cloNIDine HCL 0.1 MG TAB PO ONE (09:01)
[2019-09-01 09:24] VITALS: BP 202/107; TEMP 97.9; O2SAT 96
== END 2019-09-01 09:20 | disposition home or self-care (01) ==
LOC: ER 08:18
DX: T16.2XXA Foreign body in left ear, initial encounter (principal); T23.271A Burn of second degree of right wrist, initial encounter; T31.0 Burns involving less than 10% of body surface; H60.502 Unspecified acute noninfective otitis externa, left ear; I10 Essential (primary) hypertension; J45.909 Unspecified asthma, uncomplicated; I48.91 Unspecified atrial fibrillation; E11.9 Type 2 diabetes mellitus without complications; Z79.4 Long term (current) use of insulin; X10.2XXA Contact with fats and cooking oils, initial encounter; Y92.9 Unspecified place or not applicable

== ENCOUNTER 2019-10-15 17:00 | Emergency (ER) | payer MEDICARE, MEDICAID ==
[2019-10-15] MEDS ORDERED: TETRACAINE HCL 0.5% OPHTH SOL 1 DROP BOTH_EYES ONE (17:39)
--- NOTE | 2019-10-15 18:12 | ED.PDOC ---
History of Present Illness - General Chief Complaint: Eye Problems Stated Complaint: blurred vision Time Seen by Provider: 10/15/19 17:38 Source: patient Additional Information: The patient is a 69F with history of HTN, DM who presents with blurry vision. States that she woke this morning with blurred vision, sinus pressure and headache. Her vision is blurry in both eyes. She has been using an eye drop from her PCP (allergy?) with minimal relief. She also complains of seeing floaters in both eyes. She denies focal weakness, numbness and tingling. No other complaints at this time. - History of Present Illness Allergies/Adverse Reactions: Allergies Iodine Allergy (Verified 07/03/18 06:52) Metformin Allergy (Verified 07/03/18 06:52) Home Medications: Ambulatory Orders Amiodarone HCl 200 mg PO DAILY 12/10/15 Calcium 1,200 mg PO BID 12/10/15 Diltiazem HCl 30 mg PO TID 12/10/15 Furosemide 40 mg PO BID 12/10/15 Gabapentin 300 mg PO BID 12/10/15 Insulin Glargine [Lantus Solostar] 40 unit SC DAILY 12/10/15 Magnesium 400 mg PO BID 12/10/15 Metoprolol Tartrate 100 mg PO BID 12/10/15 Multiple Vitamin [Multivitamins] 1 cap PO DAILY 12/10/15 Pantoprazole Sodium 20 mg PO DAILY 12/10/15 Potassium Chloride [K-Tab] 40 meq PO BID 12/10/15 Tylenol With Codeine #3 1 ea PO Q4H PRN 12/10/15 Meclizine HCl 25 mg PO Q6H PRN #30 tab 08/17/16 Cyclobenzaprine HCl [Flexeril] 10 mg PO TID PRN #15 tab 12/01/17 Indomethacin 50 mg PO TID PRN #14 cap 12/01/17 Kktziemw-Kiskkmklm-Xh (Otic) [Cortisporin Otic Soln] 0 ml LEFT_EAR TID #1 bttl 09/01/19 SILVER SULFADIAZINE 1 % 25gm [Silvadene Cream 25gm] 1 applic TOP BID #1 tube 09/01/19 Review of Systems - Review of Systems EENTM: States: blurred vision, nose congestion. Denies: eye pain, tearing, double vision Respiratory: States: no symptoms reported Cardiology: States: no symptoms reported Gastrointestinal/Abdominal: States: no symptoms reported Genitourinary: States: no symptoms reported Musculoskeletal: States: no symptoms reported Skin: States: no symptoms reported Neurological: States: headache. Denies: numbness, paresthesia, tingling Endocrine: States: no symptoms reported Hematologic/Lymphatic: States: no symptoms reported All other Systems: Reviewed and Negative Past Medical History (General) - Patient Medical History Hx Seizures: No Hx Stroke: Yes Hx Dementia: No Hx Asthma: Yes Hx of COPD: No Hx Cardiac Disorders: Yes - A-fib Hx Congestive Heart Failure: No Hx Hypertension: Yes Hx Thyroid Disease: No Hx Diabetes: Yes Hx Gastroesophageal Reflux: Yes Hx Renal Disease: Yes Hx Cancer: No Hx of HIV: No Hx Hepatitis C: No Hx MRSA: No Surgical History: other - Vaccination History Hx Tetanus, Diphtheria Vaccination: No Hx Influenza Vaccination: Yes Hx Pneumococcal Vaccination: Yes - Social History Hx Tobacco Use: No Hx Chewing Tobacco Use: No Hx Alcohol Use: No Hx Substance Use: No Hx Substance Use Treatment: No Hx Depression: No Hx Physical Abuse: No Hx Emotional Abuse: No Hx Suspected Abuse: No - Female History Patient : No Family Medical History - Family History Mother Family History: Unknown Living Status: Age at (years of age): 70 Hx Family Hypertension: Yes Hx Cardiac Disease: Yes Hx Family Diabetes: Yes Hx Family Cancer: Yes Physical Exam - Physical Exam General Appearance: Comfortable, No apparent distress, Obese Eye Exam: bilateral normal - EOMI, PERRL. Fundus visualized bilaterally and normal. , bilateral other - 20/30 OS, 20/40 OD, 20/25 bilat. 18-19mmHg bilat Ears, Nose, Throat: normal ENT inspection Neck: non-tender, full range of motion Respiratory: no respiratory distress, no accessory muscle use Cardiovascular/Chest: regular rate, rhythm Neurologic: no motor/sensory deficits, alert, normal mood/affect, oriented x 3 Progress - Progress Progress: 10/15/19 18:14 The patient presents with headache and blurred vision. Not sudden onset or worst of life. No fever or trauma. May be complex migraine, recommend tylenol/motrin and oral hydration for her pain. External eye exam is normal. pupils are equally reactive and fundus visualized. Acuity as above is mildly abnormal. Pressures are normal. No eye pain or FB sensation. She states that she has appointment with ophthalmology tomorrow. Will continue outpatient management and she will follow up. Home care instructions and return indications reviewed. Departure - Departure Clinical Impression: Blurry vision, bilateral Headache Qualifiers: Headache type: unspecified Headache chronicity pattern: acute headache Intractability: not intractable Qualified Code(s): R51 - Headache Time of Disposition: 18:17 Disposition: Discharge to Home or Self Care Condition: Fair Departure Forms: ED Discharge - Pt. Copy, Patient Portal Self Enrollment Diet: resume usual diet Activity: increase activity as tolerated Referrals: Wei Christian MD [Primary Care Provider] - 1-2 Weeks Cuauhtemoc Georges MD [Physicians] - 1-2 Weeks Home Medications: Ambulatory Orders Amiodarone HCl 200 mg PO DAILY 12/10/15 Calcium 1,200 mg PO BID 12/10/15 Diltiazem HCl 30 mg PO TID 12/10/15 Furosemide 40 mg PO BID 12/10/15 Gabapentin 300 mg PO BID 12/10/15 Insulin Glargine [Lantus Solostar] 40 unit SC DAILY 12/10/15 Magnesium 400 mg PO BID 12/10/15 Metoprolol Tartrate 100 mg PO BID 12/10/15 Multiple Vitamin [Multivitamins] 1 cap PO DAILY 12/10/15 Pantoprazole Sodium 20 mg PO DAILY 12/10/15 Potassium Chloride [K-Tab] 40 meq PO BID 12/10/15 Tylenol With Codeine #3 1 ea PO Q4H PRN 12/10/15 Meclizine HCl 25 mg PO Q6H PRN #30 tab 08/17/16 Cyclobenzaprine HCl [Flexeril] 10 mg PO TID PRN #15 tab 12/01/17 Indomethacin 50 mg PO TID PRN #14 cap 12/01/17 Namqqnxy-Wtdlmdikt-[id number] (Otic) [Cortisporin Otic Soln] 0 ml LEFT_EAR TID #1 bttl 09/01/19 SILVER SULFADIAZINE 1 % 25gm [Silvadene Cream 25gm] 1 applic TOP BID #1 tube 09/01/19 Additional Instructions: 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
[2019-10-15 18:39] VITALS: BP 133/67; TEMP 97.8; O2SAT 97
== END 2019-10-15 18:25 | disposition home or self-care (01) ==
LOC: ER 17:00
DX: H53.8 Other visual disturbances (principal); R51 Headache; J45.909 Unspecified asthma, uncomplicated; I48.91 Unspecified atrial fibrillation; K21.9 Gastro-esophageal reflux disease without esophagitis; E11.22 Type 2 diabetes mellitus with diabetic chronic kidney disease; I12.9 Hypertensive chronic kidney disease with stage 1 through stage 4 chronic kidney disease, or unspecified chronic kidney disease; N18.9 Chronic kidney disease, unspecified; Z86.73 Personal history of transient ischemic attack (TIA), and cerebral infarction without residual deficits; Z79.899 Other long term (current) drug therapy; Z79.4 Long term (current) use of insulin; Z88.8 Allergy status to other drugs, medicaments and biological substances; Z91.041 Radiographic dye allergy status

== ENCOUNTER → 2019-10-16 | Outpatient (CLI) | payer MEDICARE, MEDICAID | LOC: GMAJ 14:37 | PROVIDERS: ATTEND Family Medicine | DX: I10 Essential (primary) hypertension (principal); E78.00 Pure hypercholesterolemia, unspecified; E11.9 Type 2 diabetes mellitus without complications ==

== ENCOUNTER 2020-02-27 10:34 | Emergency (ER) | payer MEDICARE, MEDICAID ==
[2020-02-27 10:54] VITALS: TEMP 97.4; O2SAT 97
[2020-02-27] MEDS ORDERED: METOPROLOL TARTRATE INJ 5 MG/5 ML VIAL IV ONE (10:54)
[2020-02-27] MEDS ORDERED: MAGNESIUM SULFATE INJ 1 GM in SODIUM CHLORIDE 0.9% 100ML 100 ML IVPB ONE (10:55)
[2020-02-27] MEDS ORDERED: PROCHLORPERAZINE INJ 10 MG/2 ML VIAL IV ONE (10:55)
--- NOTE | 2020-02-27 11:26 | ED.PDOC ---
History of Present Illness - General Chief Complaint: Headache Stated Complaint: VALERIO Time Seen by Provider: 02/27/20 10:54 Source: patient, RN notes reviewed, Vital Signs reviewed, family - Exam Limitations: no limitations - History of Present Illness Initial Comments: Patient is a morbidly obese 69-year-old female who presents with complaints of right-sided headache that is localized behind her right eye. It awoke her from sleep early this morning at approximately 2:30 AM. At that time she noticed diminished vision in that right eye. At that time her headache was severe, throbbing/pounding, nonradiating. She took Motrin 400 mg p.o. and went back to bed. When she awoke the headache was still there but her vision had returned to normal. Patient has not taken her blood pressure medicines this morning. Patient complains of continued headache, nothing makes it better or worse, and therefore, patient sought medical care here in the emergency depart ment. Timing/Duration: 4-6 hours Severity: severe Improving Factors: nothing Worsening Factors: nothing Associated Symptoms: other - visual field changes transiently. Allergies/Adverse Reactions: Allergies Iodine Allergy (Verified 07/03/18 06:52) Metformin Allergy (Verified 07/03/18 06:52) Home Medications: Ambulatory Orders Amiodarone HCl 200 mg PO DAILY 12/10/15 Calcium 1,200 mg PO BID 12/10/15 Diltiazem HCl 30 mg PO TID 12/10/15 Furosemide 40 mg PO BID 12/10/15 Gabapentin 300 mg PO BID 12/10/15 Insulin Glargine [Lantus Solostar] 40 unit SC DAILY 12/10/15 Magnesium 400 mg PO BID 12/10/15 Metoprolol Tartrate 100 mg PO BID 12/10/15 Multiple Vitamin [Multivitamins] 1 cap PO DAILY 12/10/15 Pantoprazole Sodium 20 mg PO DAILY 12/10/15 Potassium Chloride [K-Tab] 40 meq PO BID 12/10/15 Tylenol With Codeine #3 1 ea PO Q4H PRN 12/10/15 Meclizine HCl 25 mg PO Q6H PRN #30 tab 08/17/16 Cyclobenzaprine HCl [Flexeril] 10 mg PO TID PRN #15 tab 12/01/17 Indomethacin 50 mg PO TID PRN #14 cap 12/01/17 Losartan Potassium 100 mg PO DAILY 02/27/20 Prochlorperazine Tab [Compazine Tab] 10 mg PO Q6H PRN #12 tab 02/27/20 Review of Systems - Review of Systems Constitutional: States: no symptoms reported, see HPI. Denies: chills, fever, malaise, weakness EENTM: States: see HPI, eye pain, blurred vision. Denies: double vision Respiratory: States: no symptoms reported. Denies: cough, short of breath, stridor, wheezing Cardiology: States: no symptoms reported. Denies: chest pain, palpitations, syncope Gastrointestinal/Abdominal: States: no symptoms reported. Denies: abdominal pain, diarrhea, nausea, vomiting Genitourinary: States: no symptoms reported. Denies: dysuria, frequency Musculoskeletal: States: no symptoms reported. Denies: back pain, joint pain, neck pain Skin: States: no symptoms reported. Denies: change in color, rash Neurological: States: see HPI, headache. Denies: numbness, paresthesia, tingling, tremors, weakness Endocrine: States: no symptoms reported. Denies: increased hunger, increased thirst, increased urine Hematologic/Lymphatic: States: no symptoms reported. Denies: blood clots, easy bleeding All other Systems: Reviewed and Negative, No Change from Baseline Past Medical History (General) - Patient Medical History Hx Seizures: No Hx Stroke: Yes Hx Dementia: No Hx Asthma: Yes Hx of COPD: No Hx Cardiac Disorders: Yes - A-fib Hx Congestive Heart Failure: No Hx Hypertension: Yes Hx Thyroid Disease: No Hx Diabetes: Yes Hx Gastroesophageal Reflux: Yes Hx Renal Disease: Yes Hx Cancer: No Hx of HIV: No Hx Hepatitis C: No Hx MRSA: No - Vaccination History Hx Tetanus, Diphtheria Vaccination: No Hx Influenza Vaccination: Yes Hx Pneumococcal Vaccination: Yes - Social History Hx Tobacco Use: No Hx Chewing Tobacco Use: No Hx Alcohol Use: No Hx Substance Use: No Hx Substance Use Treatment: No Hx Depression: No Hx Physical Abuse: No Hx Emotional Abuse: No Hx Suspected Abuse: No - Female History Patient : No Family Medical History - Family History Mother Family History: Unknown Living Status: Age at (years of age): 70 Hx Family Hypertension: Yes Hx Cardiac Disease: Yes Hx Family Diabetes: Yes Hx Family Cancer: Yes Physical Exam - Physical Exam General Appearance: Alert, Anxious, Obvious distress, Unkempt, Well Developed, Well Hydrated, Well Nourished Eye Exam: bilateral normal Ears, Nose, Throat: hearing grossly normal, normal ENT inspection, normal pharynx Neck: non-tender, full range of motion, supple Respiratory: chest non-tender, lungs clear, normal breath sounds, no respiratory distress, no accessory muscle use Cardiovascular/Chest: normal peripheral pulses, regular rate, rhythm, no edema, no gallop, no JVD, no murmur Peripheral Pulses: radial,right: 2+, radial,left: 2+ Gastrointestinal/Abdominal: normal bowel sounds, non tender, soft, no organomegaly, distended - morbid obesity Back Exam: normal inspection, no CVA tenderness, no vertebral tenderness Extremity: normal range of motion, non-tender, normal inspection Neurologic: die turner II-XII nml as tested, no motor/sensory deficits, alert, normal mood/affect, oriented x 3 Skin Exam: normal color, warm/dry Lymphatic: no adenopathy Progress - Progress Progress: Differential diagnosis: Complicated migraine, Mirax fugue, retinal vein occlusion, intracranial bleed among others. 02/27/20 11:47 After IV Lopressor, patient's blood pressure has come down approximately 50 systolic points from 230-180. Patient plans on taking her morning medicines w hen she gets home. Her headache has resolved after the IV medications. Her vision remains intact. I doubt retinal vein occlusion as her visual field changes were painful and this does not fit with RVO. I will discharge patient with follow-up with PCP tomorrow. I have recommended that she obtain ophthalmology follow-up through her PCP. I will also give her prescription for Compazine to help with her migraine headache. I discussed this plan of care with the patient and her and they voiced understanding and agreement. Patrick Anderson M.D. #200 Departure - Departure Clinical Impression: Complicated migraine, Blurred vision, right eye Time of Disposition: 11:55 Disposition: Discharge to Home or Self Care Condition: Good Departure Forms: ED Discharge - Pt. Copy, Patient Portal Self Enrollment Instructions: DI for Headache, Migraines in Adults, Headache, Adult (DC) Diet: diabetic diet Activity: increase activity as tolerated Referrals: Wei Christian MD [Primary Care Provider] - 1-2 Days Prescriptions: Prochlorperazine Tab [Compazine Tab] 10 mg PO Q6H PRN #12 tab PRN Reason: Headache Or Mild Pain Home Medications: Ambulatory Orders Amiodarone HCl 200 mg PO DAILY 12/10/15 Calcium 1,200 mg PO BID 12/10/15 Diltiazem HCl 30 mg PO TID 12/10/15 Furosemide 40 mg PO BID 12/10/15 Gabapentin 300 mg PO BID 12/10/15 Insulin Glargine [Lantus Solostar] 40 unit SC DAILY 12/10/15 Magnesium 400 mg PO BID 12/10/15 Metoprolol Tartrate 100 mg PO BID 12/10/15 Multiple Vitamin [Multivitamins] 1 cap PO DAILY 12/10/15 Pantoprazole Sodium 20 mg PO DAILY 12/10/15 Potassium Chloride [K-Tab] 40 meq PO BID 12/10/15 Tylenol With Codeine #3 1 ea PO Q4H PRN 12/10/15 Meclizine HCl 25 mg PO Q6H PRN #30 tab 08/17/16 Cyclobenzaprine HCl [Flexeril] 10 mg PO TID PRN #15 tab 12/01/17 Indomethacin 50 mg PO TID PRN #14 cap 12/01/17 Losartan Potassium 100 mg PO DAILY 02/27/20 Prochlorperazine Tab [Compazine Tab] 10 mg PO Q6H PRN #12 tab 02/27/20
[2020-02-27 12:16] VITALS: BP 180/105
== END 2020-02-27 12:14 | disposition home or self-care (01) ==
LOC: ER 10:34
DX: G43.109 Migraine with aura, not intractable, without status migrainosus (principal); H53.8 Other visual disturbances; I48.91 Unspecified atrial fibrillation; J45.909 Unspecified asthma, uncomplicated; N18.9 Chronic kidney disease, unspecified; E11.22 Type 2 diabetes mellitus with diabetic chronic kidney disease; I12.9 Hypertensive chronic kidney disease with stage 1 through stage 4 chronic kidney disease, or unspecified chronic kidney disease; K21.9 Gastro-esophageal reflux disease without esophagitis; E66.01 Morbid (severe) obesity due to excess calories; Z86.73 Personal history of transient ischemic attack (TIA), and cerebral infarction without residual deficits; Z79.4 Long term (current) use of insulin; Z79.899 Other long term (current) drug therapy; Z91.041 Radiographic dye allergy status; Z88.8 Allergy status to other drugs, medicaments and biological substances; Z68.43 Body mass index [BMI] 50.0-59.9, adult
CPT/HCPCS: 96365; 96375; 99284; J0780; J3475; J7050

== ENCOUNTER 2020-03-18 08:00 | Emergency (ER) | payer MEDICARE, MEDICAID ==
--- NOTE | 2020-03-18 08:36 | ED.PDOC ---
History of Present Illness - General Chief Complaint: Lower Extremity Injury Stated Complaint: left hip pain Time Seen by Provider: 03/18/20 08:35 - History of Present Illness Initial Comments: Patient complains Of pain in her left hip for 1 week. No history of trauma. She states this is a new symptom for her. No pain or swelling of her lower leg. The pain is worse with weightbearing and walking. She states his pain is 8/10 at present. Occurred: last week Pain - Lower Extremity: severe: Left Thigh/Hip Improving Factors: rest Worsening Factors: movement Allergies/Adverse Reactions: Allergies Iodine Allergy (Verified 07/03/18 06:52) Metformin Allergy (Verified 07/03/18 06:52) Home Medications: Ambulatory Orders Amiodarone HCl 200 mg PO DAILY 12/10/15 Calcium 1,200 mg PO BID 12/10/15 Diltiazem HCl 30 mg PO TID 12/10/15 Furosemide 40 mg PO BID 12/10/15 Gabapentin 300 mg PO BID 12/10/15 Insulin Glargine [Lantus Solostar] 40 unit SC DAILY 12/10/15 Magnesium 400 mg PO BID 12/10/15 Metoprolol Tartrate 100 mg PO BID 12/10/15 Multiple Vitamin [Multivitamins] 1 cap PO DAILY 12/10/15 Pantoprazole Sodium 20 mg PO DAILY 12/10/15 Potassium Chloride [K-Tab] 40 meq PO BID 12/10/15 Tylenol With Codeine #3 1 ea PO Q4H PRN 12/10/15 Meclizine HCl 25 mg PO Q6H PRN #30 tab 08/17/16 Cyclobenzaprine HCl [Flexeril] 10 mg PO TID PRN #15 tab 12/01/17 Indomethacin 50 mg PO TID PRN #14 cap 12/01/17 Losartan Potassium 100 mg PO DAILY 02/27/20 Prochlorperazine Tab [Compazine Tab] 10 mg PO Q6H PRN #12 tab 02/27/20 Past Medical History (General) - Patient Medical History Hx Seizures: No Hx Stroke: Yes Hx Dementia: No Hx Asthma: Yes Hx of COPD: No Hx Cardiac Disorders: Yes - A-fib Hx Congestive Heart Failure: No Hx Hypertension: Yes Hx Thyroid Disease: No Hx Diabetes: Yes Hx Gastroesophageal Reflux: Yes Hx Renal Disease: Yes Hx Cancer: No Hx of HIV: No Hx Hepatitis C: No Hx MRSA: No - Vaccination History Hx Tetanus, Diphtheria Vaccination: No Hx Influenza Vaccination: Yes Hx Pneumococcal Vaccination: Yes - Social History Hx Tobacco Use: No Hx Chewing Tobacco Use: No Hx Alcohol Use: No Hx Substance Use: No Hx Substance Use Treatment: No Hx Depression: No Hx Physical Abuse: No Hx Emotional Abuse: No Hx Suspected Abuse: No - Female History Patient : No Family Medical History - Family History Mother Family History: Unknown Living Status: Age at (years of age): 71 Hx Family Hypertension: Yes Hx Cardiac Disease: Yes Hx Family Diabetes: Yes Hx Family Cancer: Yes Physical Exam - Physical Exam General Appearance: Alert, Obese Eyes, Ears, Nose, Throat: PERRL/EOMI Neck: non-tender, supple Cardiovascular/Respiratory: regular rate, rhythm Gastrointestinal/Abdominal: non-tender Back: normal inspection, no vertebral tenderness Thigh/Hip: other - Left hip is diffusely tender to palpation, particularly over the lateral aspect. There is full range of motion with significant discomfort.No deformity noted. Leg: normal inspection, non-tender Knee: normal inspection, non-tender Ankle: normal inspection, non-tender Foot: normal inspection, non-tender Neuro/Tendon: normal sensation, normal motor functions Mental Status: alert, oriented x 3 Skin: normal color Progress - Progress Progress: 03/18/20 10:29 Patient now reports that she normally takes clonidine at home and did not take it today.At the present time she has no headache chest pain shortness of breath or neurological symptoms. The pain in her hip is improved. - Results/Orders Results/Orders: EXAM DESCRIPTION: Hip,Left 2 Views CLINICAL HISTORY: 69 years Female, left hip pain COMPARISON: CT abdomen pelvis December 10, 2015 FINDINGS: 2 views of the left hip show no acute fracture or malalignment. Minimal left hip joint space narrowing with some degenerative calcification arising from the acetabular margin. No lytic or sclerotic bone lesion. Widening of the pubic symphysis, stable from November,. Degenerative changes in the left sacroiliac joint. Vascular calcification. IMPRESSION: Mild degenerative changes in the left hip without acute left hip abnormality. Chronic widening of the pubic symphysis with degenerative changes in the left sacroiliac joint. Electronically signed by: Lele Peres MD 03/18/2020 9:[address] [facility] 9:53 AM Toradol 30 mg IM, clonidine 0.2 mg p.o. Vital Signs - 24 hr 03/18/20 03/18/20 03/18/20 08:20 08:32 09:00 Temperature 96.5 F L Pulse Rate [ 55 L 55 L 66 pulse ox] Respiratory 18 18 Rate Blood Pressure 190/143 216/106 [Right Arm] O2 Sat by Pulse 95 98 Oximetry 03/18/20 11:15 Temperature 96.9 F L Pulse Rate [ 62 pulse ox] Respiratory 18 Rate Blood Pressure 189/86 [Right Arm] O2 Sat by Pulse 97 Oximetry Departure - Departure Clinical Impression: Left hip pain, Degenerative joint disease (DJD) of hip Time of Disposition: 10:32 Disposition: Discharge to Home or Self Care Condition: Good Departure Forms: ED Discharge - Pt. Copy, Patient Portal Self Enrollment Instructions: DI for Leg Pain, High Blood Pressure (DC), Hip Pain (DC) Diet: regular diet Referrals: Wei Christian MD [Primary Care Provider] - 1-2 Weeks Home Medications: Ambulatory Orders Amiodarone HCl 200 mg PO DAILY 12/10/15 Calcium 1,200 mg PO BID 12/10/15 Diltiazem HCl 30 mg PO TID 12/10/15 Furosemide 40 mg PO BID 12/10/15 Gabapentin 300 mg PO BID 12/10/15 Insulin Glargine [Lantus Solostar] 40 unit SC DAILY 12/10/15 Magnesium 400 mg PO BID 12/10/15 Metoprolol Tartrate 100 mg PO BID 12/10/15 Multiple Vitamin [Multivitamins] 1 cap PO DAILY 12/10/15 Pantoprazole Sodium 20 mg PO DAILY 12/10/15 Potassium Chloride [K-Tab] 40 meq PO BID 12/10/15 Tylenol With Codeine #3 1 ea PO Q4H PRN 12/10/15 Meclizine HCl 25 mg PO Q6H PRN #30 tab 08/17/16 Cyclobenzaprine HCl [Flexeril] 10 mg PO TID PRN #15 tab 12/01/17 Indomethacin 50 mg PO TID PRN #14 cap 12/01/17 Losartan Potassium 100 mg PO DAILY 02/27/20 Prochlorperazine Tab [Compazine Tab] 10 mg PO Q6H PRN #12 tab 02/27/20 Additional Instructions: Take [id number] Tylenol as needed for additional pain relief.Go home and rest and allow your blood pressure to continue to go down. Contact your doctor for additional pain medicines as he feels may be necessary.
--- NOTE | 2020-03-18 09:25 | RAD ---
EXAM DESCRIPTION: Hip,Left 2 Views CLINICAL HISTORY: 69 years Female, left hip pain COMPARISON: CT abdomen pelvis December 10, 2015 FINDINGS: 2 views of the left hip show no acute fracture or malalignment. Minimal left hip joint space narrowing with some degenerative calcification arising from the acetabular margin. No lytic or sclerotic bone lesion. Widening of the pubic symphysis, stable from November,. Degenerative changes in the left sacroiliac joint. Vascular calcification. IMPRESSION: Mild degenerative changes in the left hip without acute left hip abnormality. Chronic widening of the pubic symphysis with degenerative changes in the left sacroiliac joint. Electronically signed by: Lele Peres MD 03/18/2020 9:24 AM [facility]
[2020-03-18] MEDS ORDERED: KETOROLAC TROMETHAMINE INJ 30 MG/ML VIAL IM ONE (09:31)
[2020-03-18] MEDS ORDERED: cloNIDine HCL 0.1 MG TAB PO ONE (09:32)
[2020-03-18 11:16] VITALS: BP 189/86; TEMP 96.9; O2SAT 97
== END 2020-03-18 11:02 | disposition home or self-care (01) ==
LOC: ER 08:00
DX: M16.12 Unilateral primary osteoarthritis, left hip (principal); N18.9 Chronic kidney disease, unspecified; I12.9 Hypertensive chronic kidney disease with stage 1 through stage 4 chronic kidney disease, or unspecified chronic kidney disease; E11.22 Type 2 diabetes mellitus with diabetic chronic kidney disease; J45.909 Unspecified asthma, uncomplicated; I48.91 Unspecified atrial fibrillation; K21.9 Gastro-esophageal reflux disease without esophagitis; Z86.73 Personal history of transient ischemic attack (TIA), and cerebral infarction without residual deficits; Z79.899 Other long term (current) drug therapy; Z79.4 Long term (current) use of insulin; Z91.041 Radiographic dye allergy status; Z88.8 Allergy status to other drugs, medicaments and biological substances
CPT/HCPCS: 73502; J1885

== ENCOUNTER → 2020-04-26 | Outpatient (CLI) | payer MEDICARE, MEDICAID ==
--- NOTE | 2020-04-26 18:45 | US ---
EXAM: US Duplex Left Lower Extremity Veins CLINICAL HISTORY: The patient is 69 years old and is Female; PN IN LOWER LIMB TECHNIQUE: Real-time duplex ultrasound scan of the left lower extremity veins integrating B-mode two-dimensional vascular structure, Doppler spectral analysis, color flow Doppler imaging and compression. COMPARISON: No relevant prior studies available. FINDINGS: Deep veins: Unremarkable. No DVT in the visualized common femoral, femoral, proximal deep femoral or popliteal veins. The veins demonstrate normal color flow, are normally compressible, with normal phasic flow and/or augmentation response. Superficial veins: Unremarkable. No thrombus in the visualized great saphenous vein. Soft tissues: No acute findings. No popliteal cyst. IMPRESSION: No evidence of acute DVT, left lower extremity. Electronically signed by: Manju Jolly MD 04/26/2020 6:44 PM PROGRAM TECHNICIAN
--- NOTE | 2020-04-28 16:13 | CT ---
EXAM: Head CLINICAL HISTORY: Headache COMPARISON STUDY: CT head from July 24, 2014 TECHNICAL: Noncontrast CT images were acquired through the brain. FINDINGS: Encephalomalacia of the left occipital lobe persists with little change from the previous examination. The findings are consistent with an old infarction. No finding to suggest an acute ischemic event. No intracranial hemorrhage. No masses are identified. The calvarium appears intact. IMPRESSION: 1. 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 2. No acute intracranial abnormality. This exam was performed according to our departmental dose-optimization program, which includes automated exposure control, adjustment of the mA and/or kV according to patient size and/or use of iterative reconstruction technique. Electronically signed by: Abraham Gamez MD 04/28/2020 4:11 PM [facility]
== END ==
LOC: US 13:02
PROVIDERS: ATTEND Nurse Practitioner Family
DX: R51.9 Headache, unspecified (principal); I63.9 Cerebral infarction, unspecified; M79.605 Pain in left leg